=== PATIENT | male | born 1990 | race Caucasian/White ===

== ENCOUNTER 2022-03-08 08:21 | Inpatient (IN) | payer BC, SELFPAY ==
[2022-03-08] VITALS (14 sets, daily range): BP systolic 122–182; BP diastolic 70–125; PULSE 93–108; RESP 17–30; TEMP 36.4–37.5; O2SAT 93–97; BMI 65.6; BMI 64.2
--- NOTE | 2022-03-08 08:35 | EKG12_ITS ---
Test Reason : Blood Pressure : / mmHG Vent. Rate : 101 BPM Atrial Rate : 101 BPM P-R Int : 168 ms QRS Dur : 100 ms QT Int : 348 ms P-R-T Axes : 057 -52 101 degrees QTc Int : 451 ms Sinus tachycardia Left axis deviation Pulmonary disease pattern Abnormal QRS-T angle, consider primary T wave abnormality Abnormal ECG Confirmed by YELENA PATTEN, CARLTON ([id number]), purchase request editor NADINE CONNER ([id number]) on 03/12/2022 9:10:57 AM Referred By: DOMINGA Confirmed By:CARLTON KIRK MD
--- NOTE | 2022-03-08 08:37 | EDS_ITS ---
HPI History of Present Illness Chief Complaint: Chest Pain Detail of Chief Complaint: Patient presented because of intermittent chest pain Informant: patient Onset/Context/Timing Onset: Today Context: Sudden Onset Timing: Intermittent Quality: Hot poker Location: Left chest Current Severity: Gone Maximum Severity: Moderate Worsened by: Nothing Relieved by: Nothing Associated Symptoms Associated Symptoms: No shortness of breath, no diaphoresis, no nausea, no radiation Narrative Narrative: Patient is a 31-year-old morbidly obese gentleman with history of hypertension and untreated obstructive sleep apnea who presents because of intermittent left- sided chest pain described as a hot poker. There are no alleviating, exacerbating precipitating factors. There is no associated symptoms. There is no radiation of the discomfort. There is no history of GERD. He denies black or maroon stool. He denies sour eructation. He denies fever, chills or night sweats. Patient also has history of abscess and cellulitis of left leg. Starting Saturday he had swelling of the leg. He states he is never had redness and swelling of his thigh. He denies shaking chills. He does endorse probably tipsy and polyuria last 2 to 3 days. He denies history of diabetes. He denies history of VTE. He denies pleuritic chest pain. Patient denies hematuria, dysuria or urgency. Patient denies abdominal pain. He also denies back pain. Prior similar symptoms: No Recent Illness/Hospitalization: No PFSH PFSH Medical History (Updated 03/08/22 @ 11:[address] Izzy Dupont DO) Cellulitis of left lower extremity Hypertension Obstructive sleep apnea Home Medications acetaminophen 500 mg tablet 500 mg PO DAILY PRN Migraine Headache 03/08/22 [History Last Taken 4 Months Ago ~11/06/21] ibuprofen 200 mg tablet 600 - 800 mg PO Q6H PRN Pain 03/08/22 [History Last Taken 4 Months Ago ~11/06/21] lisinopril 40 mg tablet 40 mg PO DAILY BP 03/08/22 [History Last Taken 4 Months Ago ~11/06/21] Allergy/AdvReac Type Severity Reaction Status Date / Time No Known Allergies Allergy Verified 03/08/22 08:22 Surgical History no surgical history no surgical history Social History (Updated 03/08/22 @ 08:[address] Chuck Bertrand MD) household members: none Smoking Status: Former smoker alcohol intake: never substance use type: does not use ROS ROS ED Constitutional Constitutional ED: Denies chills, fever(s), subjective, sweats or weight loss Eyes Eyes: Denies blurry vision, change in vision or diplopia ENT ENT ED: Denies ear pain, rhinorrhea or sore throat Cardiovascular Cardiovascular: Reports chest pain; Denies orthopnea, palpitations, paroxysmal nocturnal dyspnea or racing heartbeat Respiratory/Chest Respiratory/Chest: Denies cough, dyspnea, dyspnea on exertion, orthopnea or paroxysmal nocturnal dyspnea Gastrointestinal Gastrointestinal: Denies abdominal pain, diarrhea, nausea or vomiting Genitourinary Genitourinary ED: Denies dysuria, hematuria or urinary frequency Musculoskeletal Musculoskeletal: Reports other Details: Left lower extremity pain ; Denies arthralgias, back pain, myalgias or neck pain Integumentary Reports rash; Denies abscess Neurologic Neurologic: Denies paresthesias or weakness Endocrine Endocrinology: Reports polydipsia and polyuria; Denies cold intolerance, heat intolerance or polyphagia Hematologic/Lymphatic Hematologic/Lymphatic: Reports systems reviewed and no addt'l complaints, except as documented EXAM Physical Exam Const Vital Signs: 03/08/22 08:22 03/08/22 08:26 03/08/22 08:26 Temperature 97.5 F L 97.5 F L Temperature Source Temporal Temporal Pulse Rate 108 H 100 Respiratory Rate 30 H 21 H Respiratory Effort Normal Non-Labored Blood Pressure 157/77 H 157/77 H Blood Pressure Mean 103 103 Pulse Ox 97 94 Oxygen Delivery Method Room Air Room Air 03/08/22 08:51 03/08/22 09:32 Temperature 98.1 F Temperature Source Oral Pulse Rate 100 Respiratory Rate 20 H Respiratory Effort Blood Pressure 153/89 H Blood Pressure Mean 110 Pulse Ox 94 95 Oxygen Delivery Method Room Air Room Air Positive well nourished, well developed and obese General Appearance ED: well developed and NAD; Negative for cyanotic, diaphoretic or pallor Nutritional Appearance: obese HEENT Reports moist mucous membranes HEENT Narrative: Head is atraumatic normocephalic. Ears normal. Nares patent. Mucosa tacky. No abnormality the posterior pharynx. Eyes PERRL and EOMs intact bilaterally General Eye ED: Negative for pale conjunctiva or scleral icterus Neck no lymphadenopathy, supple and no JVD Neck Narrative: Trachea midline Chest Wall inspection of chest normal and palpation of chest normal Resp normal respiratory effort and clear to auscultation bilaterally Cardio regular rhythm, S1 normal heart sound, S2 normal heart sound and no murmurs Rate: tachycardic GI normal to inspection, nondistended, normoactive bowel sounds, non-tender, non- distended and no masses; Negative for hepatosplenomegaly Back/Spine no CVA tenderness Cervical Spine: Negative for cervical spine tenderness Thoracic Spine / Upper Back: Negative for thoracic spinal tenderness Lumbar Spine / Lower Back: Negative for lumbar spinal tenderness Extremity Negative for normal to inspection Extremity Narrative: Patient has a swollen left leg with erythema, warmth and induration. There is a prior defect due to I&D of abscess. Patient also has warmth with erythema medial left thigh. There is inguinal tenderness. Because of body habitus unable to determine if he has inguinal lymphadenopathy. General Extremety ED: Yes edema and tenderness General Extremity: edema Neuro oriented x3, CN's II-XII intact bilaterally and no sensory deficits noted Sensorium / Orientation: alert Psych mental status grossly normal Skin No no wounds and No skin turgor normal Skin Narrative: Patient has cellulitis of the left lower extremity with involvement of the foot and not toes. There is hair noted on his toes. He has a faint palpable DP pulse. General Skin Exam: elasticity normal; Negative for jaundice or pallor MDM MDM MDM Narrative Medical decision making narrative: Patient's main reason for presenting is chest pain. Patient streps and is very atypical. EKG was obtained to evaluate for ischemia. Concern is cellulitis of the left thigh, leg and foot. Patient is tachycardic and tachypneic. He is not hypotensive. Sepsis order set was initiated with treatment for skin infection. With history of MRSA in the past he was treated with Zosyn and vancomycin. There presently is no concern for necrotizing fasciitis. Because patient is reporting polyuria and polydipsia will obtain basic metabolic panel to assess for glucose as well as CO2 anion gap. Blood work was obtained to assess for endorgan dysfunction including lactate. Patient has 3 SIRS criteria with source of infection. Will contact hospitalist for admission. Spoke with Dr. Rosalba Dupont who will admit person. Lab Data Attestation: I reviewed the patient's lab results. Lab results narrative: White count is elevated 20,000 with shift. There is no bandemia. H&H is unremarkable. Coags are normal. Comprehensive metabolic panel is marked for an elevated glucose of 167. Creatinine is 1.02 which is normal. GFR is normal. Albumin is low at 2.2. Coags are normal. Competence metabolic panel reveals mild hyponatremia, 131. Glucose is slightly elevated 167 with a normal CO2 and anion gap. There is no evidence of endorgan dysfunction. Lactate is normal Labs: Laboratory Results - last 24 hr 03/08/22 03/08/22 03/08/22 08:28 08:28 08:28 WBC 20.4 H RBC 5.34 Hgb 16.2 Hct 51.1 MCV 95.7 H MCH 30.3 MCHC 31.7 L RDW Std Deviation 46.5 H RDW Coeff of Rigo 13.2 Plt Count 181 MPV 11.0 Immature Gran % (Auto) 0.800 Neut % (Auto) 80.5 H Lymph % (Auto) 9.9 L [place] % (Auto) 8.6 Eos % (Auto) 0.0 Baso % (Auto) 0.2 Absolute Neuts (auto) 16.4 H Absolute Lymphs (auto) 2.02 Nucleated RBC % 0 Differential Comment COMMENT Diff Path Review May foll PT 16.0 H INR 1.3 APTT 30.0 Sodium 131 L Potassium 3.7 Chloride 93 L Carbon Dioxide 31.0 Anion Gap 7 BUN 14 Creatinine 1.02 Estim Creat Clear Calc 119.76 Est GFR (MDRD) Af Amer 108 Est GFR (MDRD) Non-Af 89 BUN/Creatinine Ratio 13.7 Glucose 167 H Lactic Acid Calcium 8.8 Total Bilirubin 1.30 H AST 40 H ALT 32 Alkaline Phosphatase 72 Total Protein 7.5 Albumin 2.2 L Globulin 5.3 H Albumin/Globulin Ratio 0.4 L 03/08/22 09:02 WBC RBC Hgb Hct MCV MCH MCHC RDW Std Deviation RDW Coeff of Rigo Plt Count MPV Immature Gran % (Auto) Neut % (Auto) Lymph % (Auto) [place] % (Auto) Eos % (Auto) Baso % (Auto) Absolute Neuts (auto) Absolute Lymphs (auto) Nucleated RBC % Differential Comment Diff Path Review PT INR APTT Sodium Potassium Chloride Carbon Dioxide Anion Gap BUN Creatinine Estim Creat Clear Calc Est GFR (MDRD) Af Amer Est GFR (MDRD) Non-Af BUN/Creatinine Ratio Glucose Lactic Acid 1.8 Calcium Total Bilirubin AST ALT Alkaline Phosphatase Total Protein Albumin Globulin Albumin/Globulin Ratio EKG Initial EKG: Attestation: I personally reviewed and interpreted this EKG as follows: Interpretation: Sinus Tachycardia (Ventricular rate is 101. [place] to the left. [place] interval is 160 ms. QRS duration is 100 ms. QT duration is 348 ms. There is evidence of pulmonary disease and probably due to his untreated obstructive sleep apnea.) Discharge Plan Triage Chief Complaint: Chest Pain ED Provider: Chuck Bertrand Dx/Rx/DC Orders Clinical Impression: Cellulitis of left lower limb, Hypertension, Sepsis, Left-sided chest pain, Obstructive sleep apnea Prescriptions: No Action lisinopril 40 mg Tablet 40 mg PO DAILY acetaminophen 500 mg Tablet 500 mg PO DAILY PRN (Reason: Migraine Headache) ibuprofen 200 mg Tablet 600 - 800 mg PO Q6H PRN (Reason: Pain) Primary Care Provider: Care Physician,No Primary Referrals: Care Physician,No Primary [Primary Care Provider] - Disposition Disposition: Acute Care Hospital [facility]
[2022-03-08 08:52] LABS: Absolute Lymphocyte Count 2.02 X10^3/uL (0.83-4.51); Absolute Neutrophil Count 16.4 X10^3/uL (2.0-7.7); Basophil# 0.05 X10^3/uL; Basophil% 0.2 % (0-1); Eosinophil# 0.01 X10^3/uL; Hematocrit 51.1 % (40-54); Hemoglobin 16.2 g/dL (13.0-16.5); Lymphocyte # 2.02 X10^3/ul (0.83-4.51); Lymphocyte % 9.9 % (19-41); Mean Corp Hgb Conc 31.7 g/dL (32-36); Mean Corpuscular Hgb 30.3 pg (27.0-32.0); Mean Corpuscular Volume 95.7 fL (80-94); Monocyte# 1.76 X10^3/uL; Monocyte% 8.6 % (0-10); NRBC Flagged by Analyzer 0 % (0-5); Neutrophil # 16.42 X10^3/uL (2.7-7.7); Neutrophil % 80.5 % (47-70); POSITIVE DIFFERENTIAL YES; Platelet Count 181 K/mm3 (150-450); RBC Distribution Width CV 13.2 % (11.6-14.6); RBC Distribution Width SD 46.5 fl (35.1-43.9); Red Blood Count 5.34 M/mm3 (4.6-6.2); White Blood Count 20.4 K/mm3 (4.4-11.0)
[2022-03-08 09:00] LABS: International Normalized Ratio 1.3
[2022-03-08 09:02] LABS: Differential Indicated SCAN CRITERIA MET
[2022-03-08 09:09] LABS: ALB/GLOB Ratio 0.4 RATIO (0.9-2.4); AST(SGOT) 40 U/L (15-37); Alanine Aminotransfer ALT/SGPT 32 U/L (16-61); Albumin, Serum 2.2 g/dL (3.2-5.0); Alkaline Phosphatase 72 U/L (45-117); Anion Gap 7 (5-15); BUN 14 mg/dL (7-18); BUN/Creat Ratio 13.7 RATIO (10-20); Calcium,Total 8.8 mg/dL (8.5-10.1); Chloride 93 mmol/L (98-107); Creatinine, Serum 1.02 mg/dL (0.70-1.30); EST Glomerular Filtration Rate 89 mL/min (>60); Est Glom Filt Rate - Afr Amer 108 mL/min (>60); Estimated Creatinine Clearance 119.76 ml/min; Globulin 5.3 g/dL (2.2-4.2); Glucose 167 mg/dL (74-106); Potassium 3.7 mmol/L (3.5-5.1); Protein, Total 7.5 g/dL (6.4-8.2); Sodium Level 131 mmol/L (136-145)
[2022-03-08] MEDS: 0.9% Normal Saline 1,000 ML 250 ML IV (09:15)
[2022-03-08 09:32] LABS: Lactic Acid 1.8 mmol/L (0.4-1.9)
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
[2022-03-08 13:18] LABS: Hemoglobin A1c 8.2 % (3.8-5.6)
--- NOTE | 2022-03-08 14:17 | PCM.RX.CS ---
Consult Pharmacy has been consulted to manage selected antiobiotic: Vancomycin Type of Consult: New start Prior Doses of Antibiotics Received/Current Regimen: Medications Discontinued Medications Vancomycin HCl 2,000 mg/ (Sodium Chloride) 540 mls @ 250 mls/hr IV X1 ONE Stop: 03/08/22 11:02 Last Admin: 03/08/22 11:16 Dose: 250 mls/hr Labs: Sodium 131 mmol/L (136-145) L 03/08/22 08:28 Potassium 3.7 mmol/L (3.5-5.1) 03/08/22 08:28 Chloride 93 mmol/L (98-107) L 03/08/22 08:28 Carbon Dioxide 31.0 mmol/L (21.0-32.0) 03/08/22 08:28 Anion Gap 7 (5-15) 03/08/22 08:28 BUN 14 mg/dL (7-18) 03/08/22 08:28 Creatinine 1.02 mg/dL (0.70-1.30) 03/08/22 08:28 Est GFR (MDRD) Af Amer 108 mL/min (>60) 03/08/22 08:28 Est GFR (MDRD) Non-Af 89 mL/min (>60) 03/08/22 08:28 BUN/Creatinine Ratio 13.7 RATIO (10-20) 03/08/22 08:28 Glucose 167 mg/dL (74-106) H 03/08/22 08:28 Weight used for dosin kg Estimated Creatinine Clearance: 120 Goal Trough: 10-15 mcg/mL Pharmacy Plan for Drug Dosing: Vancomycin 2000mg given in ED, 1750mg IV q12h with trough prior to 4th dose per policy. Pharmacy Service will continue to monitor and adjust dosing as required. Follow-Up Labs: Trough Vancomycin - 03/09 @ 2230
[2022-03-08] MEDS: Acetaminophen 500 MG Tablet 1000 MG PO ×2 (15:44→21:19)
--- NOTE | 2022-03-08 16:07 | WOUNDNOTE ---
skin photo: left posterior lower leg
--- NOTE | 2022-03-08 16:08 | WOUNDNOTE ---
wound photo: left anterior lower leg
[2022-03-08] MEDS: Insulin Lispro 100 UNIT/ML INSULN.PEN SC (16:34)
[2022-03-08 16:45] LABS: Bedside Glucose 176 mg/dL (74-106)
[2022-03-08 17:45] LABS: M R Staph aureus DNA By PCR Negative (Negative); Probe Check PASS; Specimen Processing Control PASS; Staph aureus DNA By PCR POSITIVE (Negative)
[2022-03-08] MEDS: Enoxaparin 40 MG/0.4 ML Syringe SC (21:19)
[2022-03-08] MEDS: hydrALAZINE 20 MG/ML Vial 10 MG IV (21:29)
[2022-03-08] MEDS: 0.9% Saline Lock 10 ML Syringe IV (21:30)
[2022-03-08 22:16] LABS: Bedside Glucose 156 mg/dL (74-106)
[2022-03-09 02:30] VITALS: O2SAT 87
[2022-03-09 02:41] VITALS: BP 134/62; PULSE 107; RESP 18; RESP 19; TEMP 37.2; O2SAT 95
[2022-03-09] MEDS: Acetaminophen 500 MG Tablet 1000 MG PO ×3 (06:06→20:58)
[2022-03-09] MEDS: 0.9% Saline Lock 10 ML Syringe IV (06:08)
[2022-03-09] MEDS: oxyCODONE 5 MG Tablet PO (06:21)
[2022-03-09 06:50] LABS: Bedside Glucose 131 mg/dL (74-106)
[2022-03-09 07:44] LABS: Absolute Lymphocyte Count 1.51 X10^3/uL (0.83-4.51); Absolute Neutrophil Count 13.8 X10^3/uL (2.0-7.7); Basophil# 0.07 X10^3/uL; Basophil% 0.4 % (0-1); Eosinophil# 0.01 X10^3/uL; Eosinophils% 0.1 % (0-5); Hematocrit 49.2 % (40-54); Hemoglobin 15.3 g/dL (13.0-16.5); Lymphocyte # 1.51 X10^3/ul (0.83-4.51); Lymphocyte % 8.8 % (19-41); Mean Corp Hgb Conc 31.1 g/dL (32-36); Mean Corpuscular Volume 96.5 fL (80-94); Mean Platelet Vol. 11.5 fl (6.2-12.0); Monocyte# 1.51 X10^3/uL; Monocyte% 8.8 % (0-10); NRBC Flagged by Analyzer 0 % (0-5); Neutrophil % 80.9 % (47-70); POSITIVE DIFFERENTIAL YES; Platelet Count 165 K/mm3 (150-450); RBC Distribution Width CV 13.3 % (11.6-14.6); RBC Distribution Width SD 47.8 fl (35.1-43.9); White Blood Count 17.1 K/mm3 (4.4-11.0)
[2022-03-09 07:50] LABS: Differential Indicated SCAN CRITERIA MET
[2022-03-09 08:13] LABS: ALB/GLOB Ratio 0.4 RATIO (0.9-2.4); AST(SGOT) 64 U/L (15-37); Alanine Aminotransfer ALT/SGPT 40 U/L (16-61); Alkaline Phosphatase 96 U/L (45-117); Anion Gap 8 (5-15); BUN 11 mg/dL (7-18); BUN/Creat Ratio 13.3 RATIO (10-20); Calcium,Total 8.9 mg/dL (8.5-10.1); Chloride 97 mmol/L (98-107); Creatinine, Serum 0.83 mg/dL (0.70-1.30); EST Glomerular Filtration Rate 114 mL/min (>60); Est Glom Filt Rate - Afr Amer 137 mL/min (>60); Estimated Creatinine Clearance 147.18 ml/min; Glucose 142 mg/dL (74-106); Potassium 4.2 mmol/L (3.5-5.1); Sodium Level 130 mmol/L (136-145)
[2022-03-09 08:28] LABS: Phosphorus 3.7 mg/dL (2.5-4.9)
[2022-03-09 08:46] VITALS: BP 140/84; PULSE 100; PULSE 92; RESP 18; TEMP 36.7; O2SAT 93
[2022-03-09] MEDS: Enoxaparin 40 MG/0.4 ML Syringe SC ×2 (08:57→20:58)
[2022-03-09] MEDS: FLU VACC QS2022-23(6MOS UP)/PF 60 MCG/0.5 ML SYRINGE IM (08:58)
[2022-03-09] MEDS: Lisinopril 40 MG Tablet PO (08:59)
[2022-03-09 09:36] LABS: Differential Comment SCANNED
[2022-03-09] MEDS: Insulin Lispro 100 UNIT/ML INSULN.PEN SC ×2 (10:45→16:09)
[2022-03-09 11:15] LABS: Bedside Glucose 163 mg/dL (74-106)
--- NOTE | 2022-03-09 11:20 | CASEMGMT ---
RN?CM?LOW PRESSURE KETTLE OPERATOR?CM?to room to meet with patient for initial transition planning/care coordination?assessment.?RN?CM?introduced self and role at [facility].? Pt voices understanding and consents to?assessment?at this time.? Pt resting in bed in no distress at this time.? Pt is A/O at this time and answers all questions appropriately.?? Care providers, pharmacy, and demographics verified/updated at this time. PCP: Pt states used to go to [facility], but has not been there for a couple of yrs. He states he has spoken w/them and they will take him back. Specialists: none Preferred Pharmacy: [facility] Insurance: [employer] Prescription Benefit:?Yes Living Will/HPOA:?Pt does not currently have LW/HCPOA and declines info at this time.? Pt made aware that he can contact as an out-pt and make appt in the future if he decides he would like to talk with someone about this or would like to utilize [facility] social work for advanced directive completion.??Has [employer] Professor Rac card with information and contact number. Pt expresses understanding.? LNOK: , Alyson. Mother, Bhumika Living Arrangements: Lives w/his and 7-yr-old child in mobile home w/5 steps to enter. Denies difficulty w/stairs. Independent. Works full-time. Transportation:?Pt states drives self and states no transportation concerns at this time.? also drives. DME: ? Denies using any DME. He states he is supposed to wear a PAP, but d/t cost, he did not end up getting one. He does not have a glucometer and will need script @ d/c. MS3 Sue BUCKNER CM, made aware. HHC/SNF: No hx of either. No needs identified. Discussed Pt Link and he is agreeable to referral. Order placed by DUDLEY Rogers CM. Pt wishes to return home and states has no concerns with going home at time of discharge.? ?CM?to follow for any further discharge planning/needs.? Pt voices no further concerns/needs at this time.? Advised pt to ask for?CM?if any further questions/concerns/needs arise.? Voices understanding. PLAN:?Home. Will need diabetic education and insulin admin education, if d/c's home on insulin. Will need script for glucometer. Pt Link referral placed. Alejandra BSN?RN?CM
--- NOTE | 2022-03-09 14:26 | CASEMGMT ---
Spoke with hospitalist who states he anticipates home with oral diabetic medication.
[2022-03-09 14:39] VITALS: BP 137/83; PULSE 100; PULSE 98; RESP 16; TEMP 36.9; O2SAT 95
[2022-03-09 15:31] LABS: Pathologist Review Reviewed
[2022-03-09 16:36] LABS: Bedside Glucose 174 mg/dL (74-106)
--- NOTE | 2022-03-09 18:55 | PCM.PN.HOSP ---
Subjective Subjective Patient was seen and examined today, his culture of his leg wound grew out staph JOLLY and strep pyogenes, the staph is not been identified as of yet. I talked with the patient and the patient's mother by phone today while I was in the room examining the patient. Patient has significant redness going up the left leg into the left upper inner thigh, I did not unwrap the patient's lower leg dressing to examine his wound. Objective Data Objective Data Vital Signs: Vital Signs Temp Pulse Resp BP Pulse Ox O2 Del Method O2 Flow Rate 98.4 F 100 16 137/83 H 95 Room Air 3 03/09/22 14:39 03/09/22 14:39 03/09/22 14:39 03/09/22 14:39 03/09/22 14:39 03/09/22 14:39 03/09/22 14:39 Oxygen Flow Rate (L/min) 3 Oxygen Delivery Method Room Air Weight: 226.978 kg Body Mass Index (BMI) 64.2 Intake & Output: Intake and Output for Last 24 Hours 03/07/22 03/08/22 03/09/22 23:59 23:59 23:59 Intake Total 1690 / 1690 1287.75 / 1287.75 Balance 1690 / 1690 1287.75 / 1287.75 Lab / Micro Data Result Diagrams: 03/09/22 07:00 03/09/22 07:00 Labs: Laboratory Results - last 24 hr 03/08/22 08:28: Diff Path Review Reviewed 03/08/22 21:32: POC Glucose 156 H 03/09/22 06:27: POC Glucose 131 H 03/09/22 07:00: WBC 17.1 H, RBC 5.10, Hgb 15.3, Hct 49.2, MCV 96.5 H, MCH 30.0, MCHC 31.1 L, RDW Std Deviation 47.8 H, RDW Coeff of Rigo 13.3, Plt Count 165, MPV 11.5, Immature Gran % (Auto) 1.000 H, Neut % (Auto) 80.9 H, Lymph % (Auto) 8.8 L, [place] % (Auto) 8.8, Eos % (Auto) 0.1, Baso % (Auto) 0.4, Absolute Neuts (auto) 13.8 H, Absolute Lymphs (auto) 1.51, Nucleated RBC % 0, Differential Comment SCANNED, Diff Path Review June foll 03/09/22 07:00: Sodium 130 L, Potassium 4.2, Chloride 97 L, Carbon Dioxide 25.0, Anion Gap 8, BUN 11, Creatinine 0.83, Estim Creat Clear Calc 147.18, Est GFR (MDRD) Af Amer 137, Est GFR (MDRD) Non-Af 114, BUN/Creatinine Ratio 13.3, Glucose 142 H, Calcium 8.9, Magnesium 2.0, Total Bilirubin 1.80 H, AST 64 H, ALT 40, Alkaline Phosphatase 96, Total Protein 7.0, Albumin 2.0 L, Globulin 5.0 H, Albumin/Globulin Ratio 0.4 L 03/09/22 07:00: Phosphorus 3.7 03/09/22 10:44: POC Glucose 163 H 03/09/22 16:06: POC Glucose 174 H Micro: Microbiology 03/08/22 15:45 Wound - Leg, Left Gram Stain - Final 03/08/22 15:45 Wound - Leg, Left Wound Culture - Preliminary Staphylococcus aureus Streptococcus pyogenes Physical Exam Const alert, oriented x3 and no apparent distress Constitutional Narrative: Patient is morbidly obese General Appearance: cooperative, well kempt and well developed Orientation / Consciousness: awake, oriented to person, oriented to place and oriented to time HEENT normocephalic, head/scalp atraumatic and moist oral mucous membranes Eyes PERRL, EOMs intact bilaterally and conjunctivae normal Neck supple, no JVD, thyroid normal and no carotid bruits General: trachea midline Resp normal respiratory effort, no retractions, no use of accessory muscles and clear to auscultation bilaterally Auscultation: Negative for rales, rhonchi or wheezes Cardio regular rate, regular rhythm, S1 normal heart sound, S2 normal heart sound, no murmurs, no rub and no gallops GI normal to inspection, nondistended, normoactive bowel sounds, soft to palpation, non-tender and non-distended Extremity Extremity Narrative: There is significant redness noted to the left lower leg extending up to the medial aspect of the left thigh, there is induration noted to the areas, patient has a remotely scarred area of the left anterior graham noted. Skin Skin Narrative: Significant redness of the left lower leg is noted extending into the left inner upper leg Neuro oriented x3, CN's II-XII intact bilaterally, moves all extremities, no focal motor deficits and no sensory deficits noted Sensorium / Orientation: awake, alert, oriented to person, oriented to place and oriented to time Speech: speech normal Psych affect normal Assessment & Plan Assessment/Plan (1) Cellulitis of left lower limb: PLAN: Plan 1. Cellulitis of the left leg from staff aureus and strep pyogenes, continue present antibiotic coverage with Zosyn and vancomycin, await final sensitivities. #2 newly diagnosed type 2 diabetes-patient states he was diagnosed as being prediabetic in the past, he had been taking metformin but he felt it made him too tired and stopped the medication. Patient does state that however he was on a diuretic at that time and possibly atorvastatin. He has agreed to try the metformin once again, I put him on 500 mg twice daily. He will need follow-up for diabetes as an outpatient #3 morbid obesity-complicates care, management, recovery, and prognosis #4 essential hypertension-patient is on lisinopril currently Total clinical time spent by myself addressing the patient's medical issues, reviewing all of the data, and collaborating with patient's care team: 35 minutes Charges/Coding Visit Charges Inpatient E&M: 81369 Subs Hosp L2
[2022-03-09] MEDS: metFORMIN HCl 500 MG Tablet PO (18:56)
[2022-03-09 20:45] VITALS: BP 138/86; PULSE 96; RESP 16; TEMP 37; O2SAT 95
[2022-03-09 23:16] LABS: Vancomycin, Trough Level 5.2 ug/mL (5.0-15.0)
[2022-03-10 03:00] VITALS: BP 152/93; PULSE 86; RESP 16; TEMP 36.7; O2SAT 99
[2022-03-10] MEDS: Acetaminophen 500 MG Tablet 1000 MG PO ×3 (05:58→21:06)
--- NOTE | 2022-03-10 06:51 | PCM.RX.CS ---
Consult Pharmacy has been consulted to manage selected antiobiotic: Vancomycin Type of Consult: Follow-up Labs: Sodium 130 mmol/L (136-145) L 03/09/22 07:00 Potassium 4.2 mmol/L (3.5-5.1) 03/09/22 07:00 Chloride 97 mmol/L (98-107) L 03/09/22 07:00 Carbon Dioxide 25.0 mmol/L (21.0-32.0) 03/09/22 07:00 Anion Gap 8 (5-15) 03/09/22 07:00 BUN 11 mg/dL (7-18) 03/09/22 07:00 Creatinine 0.83 mg/dL (0.70-1.30) 03/09/22 07:00 Est GFR (MDRD) Af Amer 137 mL/min (>60) 03/09/22 07:00 Est GFR (MDRD) Non-Af 114 mL/min (>60) 03/09/22 07:00 BUN/Creatinine Ratio 13.3 RATIO (10-20) 03/09/22 07:00 Glucose 142 mg/dL (74-106) H 03/09/22 07:00 Vancomycin Trough 5.2 ug/mL (5.0-15.0) 03/09/22 22:32 Microbiology: Microbiology 03/08/22 09:02 Blood Culture (Wb) - Anticubital Left Blood Culture - Preliminary No growth in 48 hours. 03/08/22 09:27 Blood Culture (Wb) - Anticubital Left Blood Culture - Preliminary No growth in 48 hours. 03/08/22 15:45 Wound - Leg, Left Gram Stain - Final 03/08/22 15:45 Wound - Leg, Left Wound Culture - Preliminary Staphylococcus aureus Streptococcus pyogenes Goal Trough: 10-15 mcg/mL Pharmacy Plan for Drug Dosing: Pharmacy Service will continue to monitor and adjust dosing as required. TROUGH 5.2 @ 12 HRS. INCREASE TO 2GM Q12H AND FOLLOW UP TROUGH PRIOR TO 4TH DOSE Follow-Up Labs: Trough Vancomycin Labs to be done on [date and time ordered]: 03/11 @ 9344
[2022-03-10 07:35] VITALS: O2SAT 99
[2022-03-10 07:35] LABS: Bedside Glucose 116 mg/dL (74-106)
[2022-03-10] MEDS: metFORMIN HCl 500 MG Tablet PO ×2 (08:59→16:56)
[2022-03-10] MEDS: Enoxaparin 40 MG/0.4 ML Syringe SC ×2 (08:59→21:06)
[2022-03-10] MEDS: Lisinopril 40 MG Tablet PO (08:59)
[2022-03-10 09:00] VITALS: BP 142/86; PULSE 89; RESP 18; TEMP 36.7; O2SAT 98
[2022-03-10 09:41] LABS: Absolute Lymphocyte Count 1.59 X10^3/uL (0.83-4.51); Absolute Neutrophil Count 12.5 X10^3/uL (2.0-7.7); Basophil% 0.6 % (0-1); Eosinophil# 0.17 X10^3/uL; Eosinophils% 1.1 % (0-5); Hematocrit 47.8 % (40-54); Hemoglobin 14.7 g/dL (13.0-16.5); Lymphocyte # 1.59 X10^3/ul (0.83-4.51); Mean Corp Hgb Conc 30.8 g/dL (32-36); Mean Corpuscular Hgb 29.9 pg (27.0-32.0); Mean Corpuscular Volume 97.2 fL (80-94); Mean Platelet Vol. 11.7 fl (6.2-12.0); Monocyte# 1.37 X10^3/uL; Monocyte% 8.6 % (0-10); NRBC Flagged by Analyzer 0.1 % (0-5); Neutrophil # 12.46 X10^3/uL (2.7-7.7); Neutrophil % 78.3 % (47-70); Platelet Count 165 K/mm3 (150-450); RBC Distribution Width CV 13.3 % (11.6-14.6); RBC Distribution Width SD 48.5 fl (35.1-43.9); Red Blood Count 4.92 M/mm3 (4.6-6.2); White Blood Count 15.9 K/mm3 (4.4-11.0)
[2022-03-10 09:54] LABS: Anion Gap 9 (5-15); BUN 11 mg/dL (7-18); BUN/Creat Ratio 16.4 RATIO (10-20); Calcium,Total 8.5 mg/dL (8.5-10.1); Chloride 99 mmol/L (98-107); Creatinine, Serum 0.67 mg/dL (0.70-1.30); EST Glomerular Filtration Rate 144 mL/min (>60); Est Glom Filt Rate - Afr Amer 175 mL/min (>60); Estimated Creatinine Clearance 182.33 ml/min; Glucose 137 mg/dL (74-106); Potassium 3.7 mmol/L (3.5-5.1); Sodium Level 136 mmol/L (136-145)
[2022-03-10] MEDS: Insulin Lispro 100 UNIT/ML INSULN.PEN SC (11:19)
--- NOTE | 2022-03-10 11:41 | PN.HOSP_ITS ---
Subjective Subjective Patient was seen and examined today, his white blood cell count is lower today, patient's leg wound resulted positive for MSSA and again strep. I decided to discontinue the patient's vancomycin and leave him on Zosyn for now. Objective Data Objective Data Vital Signs: Vital Signs Temp Pulse Resp BP Pulse Ox O2 Del Method O2 Flow Rate 98.0 F 89 18 142/86 H 98 Room Air 3 03/10/22 09:00 03/10/22 09:00 03/10/22 09:00 03/10/22 09:00 03/10/22 09:00 03/10/22 09:00 03/09/22 14:39 Oxygen Flow Rate (L/min) 3 Oxygen Delivery Method Room Air Weight: 226.978 kg Body Mass Index (BMI) 64.2 Intake & Output: Intake and Output for Last 24 Hours 03/08/22 03/09/22 03/10/22 23:59 23:59 23:59 Intake Total 1690 / 1690 1337.75 / 1337.75 635 / 635 Balance 1690 / 1690 1337.75 / 1337.75 635 / 635 Lab / Micro Data Result Diagrams: 03/10/22 08:58 03/10/22 08:58 Labs: Laboratory Results - last 24 hr 03/08/22 08:28: Diff Path Review Reviewed 03/09/22 16:06: POC Glucose 174 H 03/09/22 22:32: Vancomycin Trough 5.2 03/10/22 05:57: POC Glucose 116 H 03/10/22 08:58: WBC 15.9 H, RBC 4.92, Hgb 14.7, Hct 47.8, MCV 97.2 H, MCH 29.9, MCHC 30.8 L, RDW Std Deviation 48.5 H, RDW Coeff of Rigo 13.3, Plt Count 165, MPV 11.7, Immature Gran % (Auto) 1.400 H, Neut % (Auto) 78.3 H, Lymph % (Auto) 10.0 L, [place] % (Auto) 8.6, Eos % (Auto) 1.1, Baso % (Auto) 0.6, Absolute Neuts (auto) 12.5 H, Absolute Lymphs (auto) 1.59, Nucleated RBC % 0.1 03/10/22 08:58: Sodium 136, Potassium 3.7, Chloride 99, Carbon Dioxide 28.0, Anion Gap 9, BUN 11, Creatinine 0.67 L, Estim Creat Clear Calc 182.33, Est GFR (MDRD) Af Amer 175, Est GFR (MDRD) Non-Af 144, BUN/Creatinine Ratio 16.4, Glucose 137 H, Calcium 8.5 Micro: Microbiology 03/08/22 15:45 Wound - Leg, Left Gram Stain - Final 03/08/22 15:45 Wound - Leg, Left Wound Culture - Final Staphylococcus aureus Streptococcus pyogenes 03/08/22 09:02 Blood Culture (Wb) - Anticubital Left Blood Culture - Preliminary No growth in 48 hours. 03/08/22 09:27 Blood Culture (Wb) - Anticubital Left Blood Culture - Preliminary No growth in 48 hours. Physical Exam Narrative Patient is morbidly obese Const alert, oriented x3 and no apparent distress General Appearance: cooperative, well kempt and well developed Orientation / Consciousness: awake, oriented to person, oriented to place and oriented to time HEENT normocephalic, head/scalp atraumatic and moist oral mucous membranes Eyes PERRL, EOMs intact bilaterally and conjunctivae normal Neck supple, no JVD, thyroid normal and no carotid bruits General: trachea midline Resp normal respiratory effort and clear to auscultation bilaterally Auscultation: Negative for rales, rhonchi or wheezes Cardio regular rate, regular rhythm, no murmurs, no rub and no gallops GI normal to inspection, nondistended, normoactive bowel sounds, soft to palpation, non-tender and non-distended Extremity Extremity Narrative: Left leg is very edematous compared with the patient's right leg, there is a small open wound over the anterior aspect of the left lower leg that is only approximately 1 cm in diameter, there is no drainage from this area, there is red streaking from the patient's foot all the way up the leg into the inner left thigh area. Neuro oriented x3, CN's II-XII intact bilaterally, moves all extremities, no focal motor deficits and no sensory deficits noted Sensorium / Orientation: awake, alert, oriented to person, oriented to place and oriented to time Speech: speech normal Psych affect normal Assessment & Plan Assessment/Plan (1) Cellulitis of left lower limb: PLAN: Plan 1. Cellulitis of the left leg from methicillin sensitive staph aureus and strep pyogenes, continue present antibiotic coverage with Zosyn, vancomycin was discontinued today #2 newly diagnosed type 2 diabetes-patient is currently on metformin, his blood sugars are better today, he will need a prescription for glucose monitor when he goes home. #3 morbid obesity-complicates care, medical course, recovery, and prognosis #4 essential hypertension-patient is on lisinopril currently Total clinical time spent by myself addressing the patient's medical issues, reviewing all of the data, and collaborating with patient's care team: 37 min utes Charges/Coding Visit Charges Inpatient E&M: 43265 Subs Hosp L2
[2022-03-10 14:00] VITALS: BP 138/84; PULSE 89; RESP 18; TEMP 37; O2SAT 98
[2022-03-10 14:01] LABS: Bedside Glucose 152 mg/dL (74-106)
[2022-03-10 17:15] LABS: Bedside Glucose 124 mg/dL (74-106)
[2022-03-10 20:29] VITALS: BP 164/88; PULSE 91; RESP 18; TEMP 36.9; O2SAT 92
[2022-03-10 21:30] LABS: Bedside Glucose 115 mg/dL (74-106)
[2022-03-11 03:20] VITALS: BP 157/104; PULSE 99; RESP 18; TEMP 36.8; O2SAT 95
[2022-03-11] MEDS: Acetaminophen 500 MG Tablet 1000 MG PO (06:04)
[2022-03-11 06:31] LABS: Bedside Glucose 142 mg/dL (74-106)
[2022-03-11 07:44] VITALS: O2SAT 95
[2022-03-11] MEDS: Lisinopril 40 MG Tablet PO (08:14)
[2022-03-11] MEDS: metFORMIN HCl 500 MG Tablet PO (08:14)
[2022-03-11] MEDS: Enoxaparin 40 MG/0.4 ML Syringe SC (08:14)
[2022-03-11 08:31] LABS: Anion Gap 8 (5-15); BUN 10 mg/dL (7-18); BUN/Creat Ratio 16.6 RATIO (10-20); Calcium,Total 8.9 mg/dL (8.5-10.1); Chloride 101 mmol/L (98-107); EST Glomerular Filtration Rate 163 mL/min (>60); Est Glom Filt Rate - Afr Amer 198 mL/min (>60); Glucose 130 mg/dL (74-106); Potassium 3.9 mmol/L (3.5-5.1); Sodium Level 138 mmol/L (136-145)
[2022-03-11 08:38] LABS: Absolute Lymphocyte Count 1.53 X10^3/uL (0.83-4.51); Absolute Neutrophil Count 8.6 X10^3/uL (2.0-7.7); Basophil# 0.12 X10^3/uL; Eosinophil# 0.15 X10^3/uL; Eosinophils% 1.3 % (0-5); Hematocrit 48.8 % (40-54); Hemoglobin 15.1 g/dL (13.0-16.5); Lymphocyte # 1.53 X10^3/ul (0.83-4.51); Lymphocyte % 13.2 % (19-41); Mean Corp Hgb Conc 30.9 g/dL (32-36); Mean Corpuscular Hgb 29.9 pg (27.0-32.0); Mean Corpuscular Volume 96.6 fL (80-94); Mean Platelet Vol. 11.4 fl (6.2-12.0); Monocyte# 0.93 X10^3/uL; NRBC Flagged by Analyzer 0 % (0-5); Neutrophil # 8.56 X10^3/uL (2.7-7.7); Neutrophil % 73.7 % (47-70); Platelet Count 216 K/mm3 (150-450); RBC Distribution Width CV 13.5 % (11.6-14.6); RBC Distribution Width SD 48.2 fl (35.1-43.9); Red Blood Count 5.05 M/mm3 (4.6-6.2); White Blood Count 11.6 K/mm3 (4.4-11.0)
[2022-03-11 09:20] VITALS: BP 157/90; PULSE 91; RESP 18; TEMP 36.7; O2SAT 95
--- NOTE | 2022-03-11 10:54 | DCINST_ITS ---
Discharge Instructions Diet Discharge Diet: 1800 Calorie Control Diet Activity Discharge Activity: Return to Normal Activity Weight Bearing Status: Full weight bearing Follow Up Care Test Results: Test results from this visit will be discussed in further detail at your follow- up appointment, if applicable. Discharge Plan Admission Admit Date/Time: 03/08/22 11:08 Primary Reason for Your Visit: Cellulitis of the left leg Attending Provider: Oneal Stock Primary Care Provider: Care Physician,No Primary Consulting Providers: Izzy Dupont Instructions Additional Instructions / Restrictions: Your primary care physician tomorrow regarding your diabetes, you will need a glucose monitor with strips and lancets prescribed for you Avoid concentrated sugars Discharge Orders/Prescriptions Prescriptions: New metformin 500 mg Tablet 500 mg PO BIDCM Qty: 0 0RF cefadroxil 500 mg capsule 1,000 mg PO BID 10 Days Qty: 40 0RF Rx Instructions: start on 03/12/22 Continued lisinopril 40 mg Tablet 40 mg PO DAILY acetaminophen 500 mg Tablet 500 mg PO DAILY PRN (Reason: Migraine Headache) ibuprofen 200 mg Tablet 600 - 800 mg PO Q6H PRN (Reason: Pain) Referrals / Follow Up: Care Physician,No Primary [Primary Care Provider] - Disposition Disposition (needs filled in before D/C Order can be placed): Home, Self Care
[2022-03-11] MEDS: Insulin Lispro 100 UNIT/ML INSULN.PEN SC (11:01)
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
[2022-03-11 11:35] LABS: Bedside Glucose 157 mg/dL (74-106)
[2022-03-11 11:49] VITALS: BP 157/90; PULSE 91; RESP 18; TEMP 36.7; O2SAT 95
[2022-03-12 13:28] LABS: Pathologist Review Reviewed
== END 2022-03-11 12:55 | disposition home or self-care (01) | DRG 603 ==
LOC: ED 13:59 → MS3 14:04
PROVIDERS: Admitting Provider Internal Medicine; Emergency Provider Emergency Medicine; Visit Provider Internal Medicine
DX: L03.116 Cellulitis of left lower limb (principal); Z68.44 Body mass index [BMI] 60.0-69.9, adult; E11.65 Type 2 diabetes mellitus with hyperglycemia; I10 Essential (primary) hypertension; B95.61 Methicillin susceptible Staphylococcus aureus infection as the cause of diseases classified elsewhere; B95.0 Streptococcus, group A, as the cause of diseases classified elsewhere; E66.01 Morbid (severe) obesity due to excess calories; R07.89 Other chest pain; Z91.199 Patient's noncompliance with other medical treatment and regimen due to unspecified reason; Z79.84 Long term (current) use of oral hypoglycemic drugs; Z79.899 Other long term (current) drug therapy; Z87.891 Personal history of nicotine dependence; Z23 Encounter for immunization
CPT/HCPCS: 36415; 80048; 80053; 80202; 82962; 83036; 83605; 83735; 84100; 85025; 85610; 85730; 87040; 87070; 87077; 87186; 87205; 87640; 93005; 94668; 97802; 99285; J7030; J7040; J7050; 90686; A4216; J0696